=== PATIENT | female | born 1975 | race Caucasian/White ===

== ENCOUNTER 2019-05-22 05:43 | Emergency (ER) | payer OTHER ==
[2019-05-22 07:00] LABS: APPEARANCE,URINE CLEAR; BILIRUBIN,URINE NEGATIVE (NEGATIVE); COLOR,URINE STRAW; GLUCOSE, URINE NEGATIVE (NEGATIVE); KETONES,URINE NEGATIVE (NEGATIVE); LEUKOCYTE ESTERASE,URINE LARGE (NEGATIVE); NITRITE,URINE NEGATIVE (NEGATIVE); PROTEIN,URINE NEGATIVE (NEGATIVE); URINE SPECIFIC GRAVITY 1.005; UROBILINOGEN,URINE NEGATIVE mg/dL (<2.0)
[2019-05-22] MEDS ORDERED: CEPHALEXIN 500 MG CAPSULE PO ONE (07:12)
[2019-05-22 07:21] LABS: T.VAGINALIS (WET MOUNT) NO TRICHOMONAS SEEN; YEAST (WET MOUNT) NO YEAST SEEN
[2019-05-22 07:22] LABS: BACTERIA (WET MOUNT) 3+ BACTERIA SEEN; EPITHELIALS (WET MOUNT) 3+ EPITHELIALS SEEN; RBCS (WET MOUNT) RARE RBCS SEEN; WBCS (WET MOUNT) RARE WBCS SEEN
--- NOTE | 2019-05-22 07:28 | ER Document Report ---
HPI - HPI Time Seen by Provider: 05/22/19 06:37 Pain Level: 4 Context: Patient is a 44-year-old female that comes to the emergency department for chief complaint of developing urinary hesitancy, dysuria, and cramping in the lower abdomen over the bladder (she points). She states that she has had many bladder infections in the past and this feels like beginning. She reports vague minimal flank pain. She denies nausea/vomiting, fever/chills. She states she had a discharge recently but this seems to have resolved, she does have some vaginal itching. She denies any daily medications. She has had a partial hysterectomy. - URINARY Urinary: REPORTS: Urgency, Frequency - REPRODUCTIVE LMP: N/A Reproductive: REPORTS: Abnormal bleeding / discharge. DENIES: : Past Medical History - General Information source: Patient - Social History Smoking Status: Never Smoker Frequency of alcohol use: None Drug Abuse: None Lives with: Family Family History: Reviewed & Not Pertinent Patient has suicidal ideation: No Patient has homicidal ideation: No - Past Medical History Cardiac Medical History: Denies: Hx Coronary Artery Disease, Hx Heart Attack, Hx Hypertension Pulmonary Medical History: Denies: Hx Asthma, Hx Bronchitis, Hx COPD, Hx Pneumonia Neurological Medical History: Denies: Hx Cerebrovascular Accident, Hx Seizures Renal/ Medical History: Denies: Hx Peritoneal Dialysis Musculoskeletal Medical History: Denies Hx Arthritis Past Surgical History: Reports: Hx Hysterectomy, Hx Orthopedic Surgery - Immunizations Hx Diphtheria, Pertussis, Tetanus Vaccination: Yes Vertical Provider Document - CONSTITUTIONAL General Appearance: WD/WN, No Apparent Distress - INFECTION CONTROL TRAVEL OUTSIDE OF THE [place] IN LAST 30 DAYS: No - HEENT HEENT: Atraumatic, Normocephalic - NECK Neck: Normal Inspection - RESPIRATORY Respiratory: Breath Sounds Normal, No Respiratory Distress - CARDIOVASCULAR Cardiovascular: Regular Rate, Regular Rhythm - GI/ABDOMEN Gastrointestinal: Abdomen Soft, Abdomen Tender - There is some suprapubic tenderness on exam, the remaining upper and lower quadrants are unremarkable, there is no guarding or rigidity. Bowel sounds present throughout. - REPRODUCTIVE Female Genitalia: Normal Inspection - External exam with no concerning findings or rash, speculum exam with no noted discharge, erythema, lesions, or cervical motion tenderness. Exam performed with Stephenie NI at bedside.. negative: Abnormal Inspection, CMT - BACK Back: Normal Inspection - No CVA tenderness bilaterally - MUSCULOSKELETAL/EXTREMETIES Musculoskeletal/Extremeties: MAEW, FROM, Non-Tender - NEURO Level of Consciousness: Awake, Alert, Appropriate Motor/Sensory: No Motor Deficit, No Sensory Deficit - DERM Integumentary: Warm, Dry, No Rash Course - Re-evaluation Re-evalutation: Patient is talkative, smiling, well-appearing. No fever. Abdomen is unremarkable except for minimal tenderness. No guarding. No CVA tenderness. No vomiting. Urinalysis does indicate an infection, patient will be treated for suspected cystitis based on her symptoms and. There are some bacteria on the wet mount, however physical examination does not show cervical motion tenderness, discharge, or concerning a normality. There is also some skin contaminant on the swab. Does not appear to be a pelvic infection causing her symptoms. Discussed work-up and treatment options. Patient will be treated for cystitis. Discussed follow-up and return precautions. Patient states understanding and agreement. - Vital Signs Vital signs: Temp Pulse Resp BP Pulse Ox 98.2 F 77 18 121/80 95 05/22/19 05:57 05/22/19 05:57 05/22/19 05:57 05/22/19 05:57 05/22/19 05:57 - Laboratory Laboratory results interpreted by me: 05/22/19 06:38 Urine Blood SMALL H Ur Leukocyte Esterase LARGE H Discharge - Discharge Clinical Impression: Lower abdominal pain Urinary tract infection Qualifiers: Urinary tract infection type: site unspecified Hematuria presence: without hematuria Qualified Code(s): N39.0 - Urinary tract infection, site not specified Condition: Stable Disposition: HOME, SELF-CARE Additional Instructions: Your evaluation is consistent with developing cystitis (a bladder infection). Take antibiotics as prescribed to completion. After completing the antibiotics take the Diflucan to avoid yeast infection. Follow-up with your primary care provider. Return if you worsen including fever, severe worsening pain, vomiting, or any other concerning or worsening symptoms. Prescriptions: Fluconazole [Diflucan] 150 mg PO ONCE PRN #1 tablet PRN Reason: Cephalexin Monohydrate [Keflex 500 mg Capsule] 500 mg PO BID 7 Days #14 capsule
[2019-05-22 07:43] VITALS: BP 111/75
== END 2019-05-22 07:43 | disposition home or self-care (01) ==
LOC: ER 05:43
DX: N30.90 Cystitis, unspecified without hematuria (principal); R39.11 Hesitancy of micturition; R30.0 Dysuria; R10.30 Lower abdominal pain, unspecified; R10.9 Unspecified abdominal pain; R39.15 Urgency of urination; R35.0 Frequency of micturition; L29.9 Pruritus, unspecified; Z90.711 Acquired absence of uterus with remaining cervical stump
CPT/HCPCS: 81001; 87086; 87210; 99283

== ENCOUNTER 2019-07-14 19:29 | Emergency (ER) | payer SELFPAY ==
--- NOTE | 2019-07-14 19:54 | ER Document Report ---
ED General - General Stated Complaint: EMOTIONAL STRESS Time Seen by Provider: 07/14/19 19:54 TRAVEL OUTSIDE OF THE [place] IN LAST 30 DAYS: No - HPI Patient complains to provider of: anxiety Notes: patient presents to ED with complaint of total body numbness and chest pain that started after she found out that her 27 y/o daughter unexpectedly today she is generally healthy and denies any problems prior to hearing the news of her daughter's no cough, fever, chills, vomiting, diarrhea she is able to walk and speech is normal she feels like she is likely having a panic attack - Related Data Allergies/Adverse Reactions: codeine [Codeine] Allergy (Verified 01/06/13 12:22) erythromycin base [Erythromycin Base] Allergy (Verified 01/06/13 12:22) latex [Latex] Allergy (Verified 01/06/13 12:22) Past Medical History - Social History Smoking Status: Unknown if Ever Smoked Family History: Reviewed & Not Pertinent - Past Medical History Cardiac Medical History: Denies: Hx Coronary Artery Disease, Hx Heart Attack, Hx Hypertension Pulmonary Medical History: Denies: Hx Asthma, Hx Bronchitis, Hx COPD, Hx Pneumonia Neurological Medical History: Denies: Hx Cerebrovascular Accident, Hx Seizures Renal/ Medical History: Denies: Hx Peritoneal Dialysis Musculoskeletal Medical History: Denies Hx Arthritis Past Surgical History: Reports: Hx Hysterectomy, Hx Orthopedic Surgery - Immunizations Hx Diphtheria, Pertussis, Tetanus Vaccination: Yes Review of Systems - Review of Systems Constitutional: No symptoms reported EENT: No symptoms reported Cardiovascular: Chest pain Respiratory: No symptoms reported Gastrointestinal: No symptoms reported Genitourinary: No symptoms reported Female Genitourinary: No symptoms reported Musculoskeletal: No symptoms reported Skin: No symptoms reported Hematologic/Lymphatic: No symptoms reported Neurological/Psychological: Tingling Physical Exam - Vital signs Vitals: Resp 07/14/19 19:48 Interpretation: Normal - General General appearance: Appears well, Alert - HEENT Head: Normocephalic, Atraumatic Eyes: Normal Pupils: PERRL Ears: Normal Tympanic membrane: Normal Mucous membranes: Normal Pharynx: Normal Neck: Normal. No: Lymphadenopathy, Meningismus - Respiratory Respiratory status: No respiratory distress Chest status: Nontender Breath sounds: Normal Chest palpation: Normal - Cardiovascular Rhythm: Regular Heart sounds: Normal auscultation Murmur: No - Abdominal Inspection: Normal Distension: No distension Bowel sounds: Normal Tenderness: Nontender Organomegaly: No organomegaly - Back Back: Normal, Nontender - Extremities General upper extremity: Normal inspection, Nontender, Normal color, Normal ROM, Normal temperature General lower extremity: Normal inspection, Nontender, Normal color, Normal ROM, Normal temperature, Normal weight bearing. No: Karen's sign - Neurological Neuro grossly intact: Yes Cognition: Normal Orientation: AAOx4 [place] Coma Scale Eye Opening: Spontaneous Gema Coma Scale Verbal: Oriented Gema Coma Scale Motor: Obeys Commands [place] Coma Scale Total: 15 Speech: Normal Motor strength normal: LUE, RUE, LLE, RLE Sensory: Normal - Psychological Associated symptoms: Normal affect, Normal mood - Skin Skin Temperature: Warm Skin Moisture: Dry Skin Color: Normal Course - Re-evaluation Re-evalutation: 07/14/19 20:03 likely having an anxiety reaction related to hearing of daughter's unexpected will screen with labs and ekg offer iv lorazepam while in eD 07/15/19 00:16 patient has 2 negative troponins - offered chest pain admit for stress test however, given emotional stressor this is likely anxiety reaction recommend pcp follow up as outpt for further care - Vital Signs Vital signs: Temp Pulse Resp BP Pulse Ox 12 127/85 H 100 07/14/19 21:00 07/14/19 20:01 07/14/19 21:00 - Laboratory Result Diagrams: 07/14/19 20:17 07/14/19 20:17 Laboratory results interpreted by me: 07/14/19 07/14/19 20:17 20:17 WBC 10.7 H Glucose 128 H - Diagnostic Test Radiology reviewed: Image reviewed, Reports reviewed - EKG Interpretation by Me Additional EKG results interpreted by me: 07/15/19 00:17 rate of 93, NSR, no ST changes, poor R wave progression Discharge - Discharge Clinical Impression: Atypical chest pain, Anxiety reaction Condition: Stable Disposition: HOME, SELF-CARE Instructions: Chest Pain of Unclear Cause ([facility]) Additional Instructions: follow up with primary doctor return to ED with worsening take any home medicines as directed Referrals: CARIDAD WINN MD [[facility]] - Follow up as needed
[2019-07-14] MEDS ORDERED: NORMAL SALINE 1000 ML 1,000 ML IV ONE (20:00)
[2019-07-14] MEDS ORDERED: LORAZEPAM INJ 2 MG/1 ML VIAL IV ONE (20:00)
[2019-07-14] MEDS ORDERED: ACETAMINOPHEN 325 MG TABLET PO ONE (20:21)
[2019-07-14 20:31] LABS: ABSOLUTE EOSINOPHILS # (AUTO) 0.1 10^3/uL (0.0-0.6); ABSOLUTE LYMPHOCYTES (AUTO) 2.2 10^3/uL (0.5-4.7); ABSOLUTE MONOCYTES (AUTO) 0.7 10^3/uL (0.1-1.4); ABSOLUTE NEUT (AUTO) 7.7 10^3/uL (1.7-8.2); BASOPHILS % (AUTO) 0.2 % (0-2); EOSINOPHILS % (AUTO) 0.5 % (0-6); HEMATOCRIT 41.7 % (36.0-47.0); HEMOGLOBIN 14.4 g/dL (12.0-15.5); LYMPHOCYTES % (AUTO) 20.8 % (13-45); MEAN CORPUSCULAR HEMOGLOBIN 30.5 pg (27.0-33.4); MEAN CORPUSCULAR HGB CONC 34.6 g/dL (32.0-36.0); MEAN CORPUSCULAR VOLUME 88 fl (80-97); MONOCYTES % (AUTO) 6.5 % (3-13); PLATELET COUNT 312 10^3/uL (150-450); RED BLOOD COUNT 4.73 10^6/uL (3.72-5.28); RED CELL DISTRIBUTION WIDTH 12.2 % (11.5-14.0); TOTAL CELLS COUNTED % (AUTO) 100 %; WHITE BLOOD COUNT 10.7 10^3/uL (4.0-10.5)
[2019-07-14 20:47] LABS: APPEARANCE,URINE CLEAR; BILIRUBIN,URINE NEGATIVE (NEGATIVE); COLOR,URINE COLORLESS; GLUCOSE, URINE NEGATIVE (NEGATIVE); KETONES,URINE NEGATIVE (NEGATIVE); PROTEIN,URINE NEGATIVE (NEGATIVE); URINE SPECIFIC GRAVITY 1.002; UROBILINOGEN,URINE NEGATIVE mg/dL (<2.0)
[2019-07-14 20:48] LABS: ALBUMIN 4.4 g/dL (3.5-5.0); ALKALINE PHOSPHATASE 92 U/L (38-126); ANION GAP 11 (5-19); ASPARTATE AMINO TRANSFERASE 29 U/L (14-36); BILIRUBIN,DIRECT 0.1 mg/dL (0.0-0.4); BILIRUBIN,TOTAL 0.3 mg/dL (0.2-1.3); BLOOD UREA NITROGEN 9 mg/dL (7-20); CALCIUM 9.7 mg/dL (8.4-10.2); CARBON DIOXIDE 24 mmol/L (22-30); CHLORIDE 105 mmol/L (98-107); GLUCOSE 128 mg/dL (75-110); POTASSIUM 3.9 mmol/L (3.6-5.0); TOTAL PROTEIN 7.4 g/dL (6.3-8.2)
[2019-07-14 20:49] VITALS: BP 127/85
--- NOTE | 2019-07-14 20:59 | EKG REPORT ---
SEVERITY:- BORDERLINE ECG - SINUS RHYTHM CONSIDER ANTERIOR INFARCT : Confirmed by: Graham Marie MD 14-Jul-2019 20:59:07
== END 2019-07-15 00:20 | disposition home or self-care (01) ==
LOC: ER 19:29
DX: F41.1 Generalized anxiety disorder (principal); R07.89 Other chest pain; R20.0 Anesthesia of skin; Z63.4 Disappearance and death of family member; Z88.5 Allergy status to narcotic agent; Z88.1 Allergy status to other antibiotic agents; Z91.040 Latex allergy status
CPT/HCPCS: 93005; 36415; 85025; 80053; 81001; 84484; 93010; J7030; 96360; 99284

== ENCOUNTER → 2019-11-18 | Day surgery (SDC) | payer SELFPAY ==
[~2019-11-18] MED LIST: PROPOFOL INJ 200 MG/20 ML VIAL IV ONE
[2019-11-18 11:14] VITALS: BP 106/64
--- NOTE | 2019-11-18 12:58 | Operative Report ---
Operative Report DATE OF SURGERY: 11/18/19 Operative Report: The risk, benefits and alternatives of the procedure including the risk of bleeding, perforation requiring surgery have been explained to the patient in detail and informed consent has been obtained. Timeout was called. Propofol medication is administered. Rectal examination is done. No masses tears or fissures are noted. The colonoscope was introduced into the patient's rectum. Scope was advanced all the way to the cecum. All segments visualized. Retroflexion maneuvers performed. PREOPERATIVE DIAGNOSIS: Personal history of polyp POSTOPERATIVE DIAGNOSIS: Right colon inflammation status post biopsy OPERATION: Colonoscopy with biopsy SURGEON: DAVID IBARRA ANESTHESIA: LMAC TISSUE REMOVED OR ALTERED: As noted above COMPLICATIONS: None. ESTIMATED BLOOD LOSS: None. INTRAOPERATIVE FINDINGS: As noted above. PROCEDURE: Patient tolerated the procedure well. No immediate postprocedure complications are noted. Patient is discharged in good condition. Discharge date 11/18/2019. Discharge diet: Regular. Discharge activity: Regular. 2 to 3-week follow-up to discuss findings. Patient is instructed to call the office or proceed to the emergency room should there be any further problems or questions. Wait on the pathology. 5-year surveillance colonoscopy.
== END ==
LOC: END 08:14
PROVIDERS: ATTEND Internal Medicine Gastroenterology
DX: Z86.010 Personal history of colon polyps (principal); Z12.11 Encounter for screening for malignant neoplasm of colon; K52.9 Noninfective gastroenteritis and colitis, unspecified; Z88.1 Allergy status to other antibiotic agents; Z88.5 Allergy status to narcotic agent
CPT/HCPCS: 45380; 88305 ×2; 00812; J2704; 812